=== PATIENT | male | born 1995 | race American Indian/Alaskan Native ===

== ENCOUNTER 2018-07-14 17:20 | Emergency (ER) | payer OTHER, MEDICAID ==
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
[2018-07-14 18:15] LABS: ANION GAP 12.3; CHLORIDE,CL 104 mmol/L (101-111); SODIUM,NA 139 mmol/L (135-145)
[2018-07-14] MEDS: Ketorolac 30 MG/ML SDV IM ONE (19:49)
== END 2018-07-14 20:15 | disposition home or self-care (01) ==
LOC: DL.ED 17:20
DX: S39.012A Strain of muscle, fascia and tendon of lower back, initial encounter (principal); M51.27 Other intervertebral disc displacement, lumbosacral region; V43.62XA Car passenger injured in collision with other type car in traffic accident, initial encounter
CPT/HCPCS: 36415; 70450; 72125; 72128; 72131; 80053; 85025; 96372; 99285; G0480; J1885

== ENCOUNTER 2019-10-09 12:09 | Emergency (ER) | payer SELFPAY ==
[2019-10-09 12:21] VITALS: BP 136/83; PULSE 85
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
[2019-10-09] MEDS: Clindamycin HCl 150 MG Cap PO ONE (13:41)
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
[2019-10-09] MEDS: Bacitracin Oint 1 GM U/D Packet TOP ONE (14:02)
== END 2019-10-09 14:05 | disposition home or self-care (01) ==
LOC: DL.ED 12:09
DX: S61.214A Laceration without foreign body of right ring finger without damage to nail, initial encounter (principal); L03.113 Cellulitis of right upper limb; Y04.0XXA Assault by unarmed brawl or fight, initial encounter
CPT/HCPCS: 73130; 87070; 99283; A9270